=== PATIENT | male | born 1995 | race American Indian/Alaskan Native ===

== ENCOUNTER 2021-09-06 16:54 | Emergency (ER) | payer SELFPAY ==
--- NOTE | 2021-09-06 18:02 | Emergency Department Report ---
ED Male HPI - General Chief complaint: Urogenital-Male Stated complaint: BURNING STABBING FEELING LT SIDE Time Seen by Provider: 09/06/21 17:18 Source: patient Mode of arrival: Ambulatory Limitations: No Limitations - History of Present Illness Initial comments: 25-year-old male presents to the ER today with complaints of UTI symptoms and left flank pain. Patient states that he has been having left flank pain off and on for the past few months with associated pain in his left lower abdominal area. Described as sharp in nature. Has been intermittent in nature, but he states that is getting worse, in the past month, he noticed that has been having lots of urinary frequency and urgency. He denies any dysuria or hematuria. He denies any vomiting or nausea. He denies any associated testicular pain, penile discharge, fever or chills. His sexual preference is heterosexual. He denies any new sexual partners lately. MD Complaint: other (Urinary frequency, urinary urgency, left flank pain) -: month(s) - Related Data Previous Rx's Medication Instructions Recorded Last Taken Type Docusate Sodium [Colace] 100 mg PO BID #30 capsule 09/06/21 Unknown Rx Ibuprofen [Motrin] 600 mg PO Q8H PRN #30 tablet 09/06/21 Unknown Rx Allergies Allergy/AdvReac Type Severity Reaction Status Date / Time No Known Allergies Allergy Verified 09/06/21 17:00 ED Review of Systems ROS: Stated complaint: BURNING STABBING FEELING LT SIDE Other details as noted in HPI Comment: All other systems reviewed and negative Constitutional: denies: chills, fever Eyes: denies: eye pain, eye discharge, vision change ENT: denies: ear pain, throat pain, dental pain, hearing loss, epistaxis, congestion Respiratory: denies: cough, shortness of breath, SOB with exertion, SOB at rest, wheezing Cardiovascular: denies: chest pain, palpitations Gastrointestinal: abdominal pain. denies: nausea, vomiting, diarrhea, con stipation, hematemesis, melena, hematochezia Genitourinary: urgency, frequency. denies: hematuria, discharge, testicular pain, testicular mass Musculoskeletal: other (left flank pain ). denies: back pain, joint swelling, arthralgia Skin: denies: rash, lesions, change in color, change in hair/nails, pruritus Neurological: denies: headache, weakness, numbness, paresthesias, confusion, abnormal gait, vertigo Psychiatric: denies: anxiety, depression, auditory hallucinations, visual hallucinations, homicidal thoughts, suicidal thoughts Hematological/Lymphatic: denies: easy bleeding, easy bruising ED Past Medical Hx - Medications Home Medications: Home Medications Medication Instructions Recorded Confirmed Last Taken Type Docusate Sodium [Colace] 100 mg PO BID #30 capsule 09/06/21 Unknown Rx Ibuprofen [Motrin] 600 mg PO Q8H PRN #30 tablet 09/06/21 Unknown Rx ED Physical Exam - General Limitations: No Limitations General appearance: alert, in no apparent distress - Head Head exam: Present: atraumatic, normocephalic, normal inspection - Eye Eye exam: Present: normal appearance, PERRL, EOMI Pupils: Present: normal accommodation - ENT ENT exam: Present: normal exam, mucous membranes moist, TM's normal bilaterally - Neck Neck exam: Present: normal inspection, full ROM - Respiratory Respiratory exam: Present: normal lung sounds bilaterally. Absent: respiratory distress, wheezes, rales, rhonchi - Cardiovascular Cardiovascular Exam: Present: regular rate, normal rhythm, normal heart sounds - GI/Abdominal GI/Abdominal exam: Present: soft, tenderness (mild llq ). Absent: distended, guarding, rebound, rigid - Back Exam Back exam: Present: normal inspection, full ROM, CVA tenderness (L) - Neurological Exam Neurological exam: Present: alert, oriented X3, CN II-XII intact, normal gait - Psychiatric Psychiatric exam: Present: normal affect, normal mood - Skin Skin exam: Present: intact ED Course Vital Signs 09/06/21 17:00 Temperature 97.9 F Pulse Rate 58 L Respiratory 18 Rate Blood Pressure 135/81 O2 Sat by Pulse 100 Oximetry ED Medical Decision Making - Lab Data Result diagrams: 09/06/21 18:22 09/06/21 18:22 - Radiology Data Radiology results: report reviewed [facility] [address] [place] [address] Cat Scan Report Signed Patient: PACO ROSE MR#: [id number] : 1995 Acct:[id number] Age/Sex: 25 / M ADM Date: 09/06/21 Loc: ED Attending Dr: Ordering Physician: KAVON CAPUTO Date of Service: 09/06/21 Procedure(s): CT abdomen pelvis wo con Accession Number(s): [id number] cc: KAVON CAPUTO CT OF THE ABDOMEN AND PELVIS WITHOUT CONTRAST INDICATION / CLINICAL INFORMATION: Left flank pain. TECHNIQUE: All CT scans at this location are performed using CT dose reduction for ALARA by means of automated exposure control. COMPARISON: None available. FINDINGS: ABDOMEN: There is no evidence of renal calculus, hydronephrosis, perinephric soft tissue stranding or mass. The liver, spleen, gallbladder, bile ducts, pancreas, and adrenal glands demonstrate no significant abnormality. Radiopaque material in the stomach and distal small bowel is likely related to medication. There is a moderate amount of stool in the colon. I see no evidence of bowel obstruction, wall thickening or free air. No adenopathy is seen. The lung bases are clear. PELVIS: The distal ureters, urinary bladder, prostate gland and seminal vesicles are normal. A normal appendix is present and there is no evidence of diverticulitis. No abnormal mass or fluid collection is seen. I do not identify a hernia. No acute osseous abnormality is present. IMPRESSION: No acute abnormality is identified. Signer Name: Catalino Mulligan MD Signed: 09/06/2021 7:42 PM Workstation Name: [id number] Transcribed By: RT Dictated By: Catalino Mulligan MD Electronically Authenticated By: Catalino Mulligan MD Signed Date/Time: 09/06/211941 DD/ 37 TD/TT: Print Cancel - Medical Decision Making CT abdomen pelvis shows constipation otherwise nothing acute. All labs reviewed -CBC and CMP including UA all unremarkable. \ Patient currently resting comfortably. He is not currently in any distress. He is not toxic or ill.. He is neurologically intact with a normal gait. His vital signs are stable. Discussed imaging results as well as lab results with patient. Exact cause of patient's symptoms at this time unclear but he will be given referral to urology given his symptoms of urinary urgency and frequency for further evaluation and follow-up with PCP. Patient expressed understanding for instructions and agree with plan. Patient was stable at time of discharge. Critical care attestation.: If time is entered above; I have spent that time in minutes in the direct care of this critically ill patient, excluding procedure time. ED Disposition Clinical Impression: Left flank pain, Urinary urgency, Constipation, Urinary frequency Disposition: 01 HOME / SELF CARE / HOMELESS Is pt being admited?: No Does the pt Need Aspirin: No Condition: Stable Instructions: Constipation, Adult, [id number], Urinary Frequency, Adult, Flank Pain, Adult, [id number] Additional Instructions: I recommend that you take the ibuprofen as prescribed to help with pain. If you continue having urinary urgency and frequency I do recommend following up with the urologist listed on your discharge instructions for further evaluation. The CT scan showed that you are constipated and therefore recommend that you take the Colace as prescribed and you can also take MiraLAX from [id number], increasing your water intake and increasing your fiber intake to help. In addition to following up with a urologist he can also follow-up with the primary care doctor listed on your discharge instructions. Return to the ER if your symptoms changes or worsens in any way. Prescriptions: Docusate Sodium [Colace] 100 mg PO BID #30 capsule Ibuprofen [Motrin] 600 mg PO Q8H PRN #30 tablet PRN Reason: Pain Referrals: WAYNE KAPLAN MD [Staff Physician] - 3-5 Days (Primary care doctor) SAMIR JOAQUIN MD [Staff Physician] - 3-5 Days (Urologist) Time of Disposition: 19:59 Print Language: KYRGYZ
[2021-09-06] MEDS ORDERED: SODIUM CHLORIDE 0.9% 1000 ML 1,000 ML IV ONE (18:08)
[2021-09-06] MEDS ORDERED: KETOROLAC 30 MG/1 ML INJ IV ONE (18:08)
[2021-09-06 18:56] LABS: Basophils % (Auto) 1.1 % (0.0-1.8); Eosinophils % (Auto) 0.2 % (0.0-4.3); Hematocrit 39.7 % (35.5-45.6); Hemoglobin 13.2 gm/dl (11.8-15.2); Lymphocytes # (Auto) 1.5 K/mm3 (1.2-5.4); Lymphocytes % (Auto) 43.1 % (13.4-35.0); Mean Corpuscular HGB Conc 33 % (32-34); Mean Corpuscular Volume 88 fl (84-94); Monocytes # (Auto) 0.4 K/mm3 (0.0-0.8); Monocytes % (Auto) 10.4 % (0.0-7.3); Platelet Count 231 K/mm3 (140-440); Red Blood Count 4.51 M/mm3 (3.65-5.03); Red Cell Distribution Width 13.8 % (13.2-15.2)
[2021-09-06 18:59] LABS: Bilirubin,Urine NEG (Negative); Blood,Urine NEG (Negative); Color,Urine Colorless (Yellow); Protein,Urine <15 mg/dL mg/dL (Negative); Urobilinogen,Urine < 2.0 mg/dL (<2.0); WBC,Urine < 1.0 /HPF (0.0-6.0)
[2021-09-06 19:14] LABS: Alanine Aminotransferase 13 units/L (7-56); Albumin 4.3 g/dL (3.9-5); BUN/Creatinine Ratio 8; Blood Urea Nitrogen 6 mg/dL (9-20); Calcium 9.7 mg/dL (8.4-10.2); Hemolysis Index 5
--- NOTE | 2021-09-06 19:46 | Cat Scan Report ---
CT OF THE ABDOMEN AND PELVIS WITHOUT CONTRAST INDICATION / CLINICAL INFORMATION: Left flank pain. TECHNIQUE: All CT scans at this location are performed using CT dose reduction for ALARA by means of automated exposure control. COMPARISON: None available. FINDINGS: ABDOMEN: There is no evidence of renal calculus, hydronephrosis, perinephric soft tissue stranding or mass. The liver, spleen, gallbladder, bile ducts, pancreas, and adrenal glands demonstrate no signif icant abnormality. Radiopaque material in the stomach and distal small bowel is likely related to medication. There is a moderate amount of stool in the colon. I see no evidence of bowel obstruction, wall thickening or fr ee air. No adenopathy is seen. The lung bases are clear. PELVIS: The distal ureters, urinary bladder, prostate gland and seminal vesicles are normal. A normal appendix is present and there is no evidence of diverticulitis. No abnormal mass or fluid collection is seen. I do not identify a hernia. No acute osseous abnormality is present. IMPRESSION: No acute abnormality is identified. Signer Name: Catalino Mulligan MD Signed: 09/06/2021 7:42 PM Workstation Name: [id number]
[2021-09-06 19:52] LABS: RBC,Urine < 1.0 /HPF (0.0-6.0)
[2021-09-06 20:19] VITALS: BP 123/77
== END 2021-09-07 03:46 | disposition home or self-care (01) ==
LOC: ED 16:54
DX: K59.00 Constipation, unspecified (principal); R35.0 Frequency of micturition; R39.15 Urgency of urination; R10.32 Left lower quadrant pain; Z79.899 Other long term (current) drug therapy
CPT/HCPCS: 36415; 74176; 80053; 81001; 85025; 96361; 96374; 99284; J1885; J7030

== ENCOUNTER 2022-03-23 00:08 | Emergency (ER) | payer SELFPAY ==
[2022-03-23 10:23] VITALS: BP 141/78
== END 2022-03-23 10:23 | disposition left against medical advice (07) ==
LOC: ED 00:08
DX: R05.9 Cough, unspecified (principal); Z53.21 Procedure and treatment not carried out due to patient leaving prior to being seen by health care provider